=== PATIENT | female | born 1995 | race Caucasian/White ===

== ENCOUNTER 2020-03-09 13:02 | Inpatient (IN) ==
[2020-03-09] MEDS ORDERED: methylPREDNISolone 125 MG/2 ML VIAL IVP ONE (13:41)
[2020-03-09] MEDS ORDERED: Isovue-370 500 ML BOTTLE IVP ONE (13:41)
[2020-03-09 13:44] LABS: Bacteria,Urine Few per hpf (None-Few); Bilirubin,Urine Negative (Negative); Blood,Urine Trace (Negative); Clarity,Urine Clear (Clear); Color,Urine Light-Yellow (Yellow); Glucose,Urine (UA) Normal (Normal); Ketones,Urine >150 mg/dL (Negative); Leukocyte Esterase,Urine Trace (Negative); Mucus,Urine Few per lpf (None-Few); Nitrite,Urine Negative (Negative); PH,Urine 6.5 pH Units (5.0-8.0); Protein,Urine Trace mg/dL (Neg-Trace); RBC,Urine 0-3 per hpf (0-3); Specific Gravity,Urine 1.013 (1.010-1.025); Squamous Epithelial Cell,Urine Few per hpf (None-Few); Urobilinogen,Urine Normal (Normal); WBC,Urine 0-3 per hpf (0-3)
[2020-03-09] MEDS ORDERED: Ondansetron 4 MG/2 ML VIAL IVP ONE (13:48)
[2020-03-09] MEDS ORDERED: *HR* FentaNYL (PF) 100 MCG/2 ML VIAL IVP ONE (13:48)
[2020-03-09] MEDS ORDERED: 0.9 % Sodium Chloride 1,000 ML IVC ONE (13:48)
[2020-03-09 13:53] LABS: Red Cell Distribution Width 18.4 % (11.5-14.5)
[2020-03-09 13:54] LABS: Hematocrit 33.1 % (35.3-44.9); Hemoglobin 10.1 g/dL (11.5-15.4); Mean Corpuscular HGB Conc 30.5 g/dL (31.6-35.5); Mean Corpuscular Hemoglobin 25.1 pg (28.0-33.3); Mean Corpuscular Volume 82.3 fL (83.0-100.0); Mean Platelet Volume 8.8 fL (9.4-12.4); Platelet Count 510 K/mcL (140-400); Red Blood Count 4.02 M/mcL (3.82-4.97); White Blood Count 27.2 K/mcL (4.3-11.1)
[2020-03-09 14:18] LABS: Eosinophils # 0.5 K/mcL (0.0-0.6); Lymphocytes # 2.7 K/mcL (0.6-4.6); Monocytes # 1.1 K/mcL (0.0-1.3); Neutrophils # 22.9 K/mcL (1.6-8.9)
[2020-03-09 14:43] LABS: Alanine Aminotransferase 36 Units/L (7-52); Albumin 2.9 g/dL (3.5-5.7); Alkaline Phosphatase 302 Units/L (34-104); Aspartate Amino Transferase 20 Units/L (13-39); Bilirubin,Direct 0.2 mg/dL (0.0-0.2); Bilirubin,Indirect 0.7 mg/dL (0.0-1.0); Bilirubin,Total 0.9 mg/dL (0.3-1.0); Blood Urea Nitrogen < 2 mg/dL (6-20); Calcium 8.2 mg/dL (8.6-10.3); Carbon Dioxide 23 mEq/L (23-29); Chloride 104 mEq/L (98-107); Globulin 2.9 g/dL (2.4-3.5); Glucose 84 mg/dL (70-105); Lipase 53 Units/L (11-82); Sodium 136 mEq/L (136-145); Total Protein 5.8 g/dL (6.4-8.9); eGFR For African Americans > 60 (> 60); eGFR For Non-African Americans > 60 (> 60)
[2020-03-09] MEDS ORDERED: Piperacillin/Tazobactam 3.375 GM in Water for inj. (sterile) 20 ML IVP ONE (15:45)
[2020-03-09] MEDS ORDERED: Naloxone 0.4 MG/ML INJ IVP PRN ×2 (16:13→16:20)
[2020-03-09] MEDS ORDERED: Ondansetron 4 MG/2 ML VIAL IVP PRN (16:20)
[2020-03-09 16:42] LABS: Chol/HDL Ratio 5.2 (0-4.9); Cholesterol 73 mg/dL (< 200); HDL Cholesterol 14 mg/dL (40-59); LDL Cholesterol,Calculated 33 mg/dL (< 100); Magnesium 1.8 mg/dL (1.6-2.6); Phosphorous 1.9 mg/dL (2.7-4.5); Triglycerides 130 mg/dL (< 150)
[2020-03-09] MEDS: *HR* HYDROmorphone (PF) 1 MG/ML SYRINGE IVP PRN (20:55)
[2020-03-09] MEDS: 0.9 % Sodium Chloride 1,000 ML IVC SCH (20:58)
[2020-03-10] MEDS: Piperacillin/Tazobactam 3.375 GM in 0.9 % Sodium Chloride Mini Bag 100 ML IVPB SCH ×5 (00:09→23:23)
[2020-03-10] MEDS ORDERED: Famotidine 20 MG/2 ML VIAL IVP ONE ×2 (00:14→07:22)
[2020-03-10] MEDS: *HR* HYDROmorphone (PF) 1 MG/ML SYRINGE IVP PRN (03:10)
[2020-03-10] MEDS: 0.9 % Sodium Chloride 1,000 ML IVC SCH ×3 (03:11→18:13)
[2020-03-10 07:09] LABS: Hemoglobin 9.7 g/dL (11.5-15.4); Mean Corpuscular HGB Conc 30.3 g/dL (31.6-35.5); Mean Corpuscular Hemoglobin 25.7 pg (28.0-33.3); Mean Corpuscular Volume 84.7 fL (83.0-100.0); Mean Platelet Volume 9.7 fL (9.4-12.4); Platelet Count 453 K/mcL (140-400); Red Blood Count 3.78 M/mcL (3.82-4.97); Red Cell Distribution Width 18.5 % (11.5-14.5)
[2020-03-10 07:15] LABS: White Blood Count 31.5 K/mcL (4.3-11.1)
[2020-03-10] MEDS ORDERED: Pregabalin 75 MG CAPSULE PO ONE ×2 (07:22→10:19)
[2020-03-10] MEDS ORDERED: *HR* HYDROmorphone (PF) 1 MG/ML SYRINGE IVP PRN (07:22)
[2020-03-10] MEDS ORDERED: *HR* Labetalol 20 MG/4 ML SYRINGE IVP PRN (07:22)
[2020-03-10] MEDS ORDERED: *HR* HYDROmorphone 2 MG TABLET PO PRN (07:22)
[2020-03-10] MEDS ORDERED: *HR* Promethazine 25 MG/ML VIAL IVP PRN (07:22)
[2020-03-10] MEDS ORDERED: *HR* OxyCODONE Immed Rel 5 MG TABLET PO PRN (07:22)
[2020-03-10] MEDS ORDERED: Acetaminophen IV 1,000 MG/100 ML INFUS..BTL IVPB ONE (07:22)
[2020-03-10] MEDS ORDERED: Scopolamine Patch 1.5 MG PATCH.TD72 TD ONE (07:22)
[2020-03-10] MEDS ORDERED: Bupivacaine/EPI 1:200k 0.25%PF 30 ML VIAL ONE (07:23)
[2020-03-10 07:27] LABS: BUN/Creatinine Ratio 17 (6-26); Blood Urea Nitrogen 5 mg/dL (6-20); Calcium 8.3 mg/dL (8.6-10.3); Carbon Dioxide 19 mEq/L (23-29); Chloride 110 mEq/L (98-107); Glucose 109 mg/dL (70-105); Osmolality,Calculated 284 (280-300); Potassium 3.6 mEq/L (3.5-5.1); Sodium 138 mEq/L (136-145); eGFR For African Americans > 60 (> 60); eGFR For Non-African Americans > 60 (> 60)
[2020-03-10] MEDS ORDERED: Lidocaine -MPF 2% 2 ML VIAL ONE (07:39)
[2020-03-10] MEDS ORDERED: *HR* Midazolam HCl 2 MG/2 ML VIAL ONE (07:39)
[2020-03-10] MEDS ORDERED: Dexamethasone 4 MG/ML VIAL ONE (07:39)
[2020-03-10] MEDS ORDERED: Ondansetron 4 MG/2 ML VIAL ONE (07:39)
[2020-03-10] MEDS ORDERED: *HR* FentaNYL (PF) 100 MCG/2 ML VIAL ONE ×2 (07:39→08:56)
[2020-03-10] MEDS ORDERED: *HR* Rocuronium Bromide 50 MG/5 ML VIAL ONE (07:39)
[2020-03-10] MEDS ORDERED: Ketorolac 30 MG/ML VIAL ONE (07:39)
[2020-03-10] MEDS ORDERED: *HR* Propofol 200 MG/20 ML VIAL IVP ONE (07:39)
[2020-03-10] MEDS ORDERED: Lidocaine HCL 4 ML Topical Solution (Laryng-O-Jet Kit Sterile Pak) TP ONE (07:40)
[2020-03-10] MEDS ORDERED: Isovue-300 50ML VIAL ONE (07:45)
[2020-03-10 08:04] LABS: Lymphocytes # 1.9 K/mcL (0.6-4.6); Monocytes # 1.3 K/mcL (0.0-1.3); Neutrophils # 28.4 K/mcL (1.6-8.9)
[2020-03-10] MEDS ORDERED: *HR* HYDROMORPHONE 2 MG/ML VIAL ONE (09:17)
[2020-03-10] MEDS ORDERED: Naloxone 0.4 MG/ML INJ IVP PRN (10:19)
[2020-03-10] MEDS ORDERED: Ondansetron 4 MG/2 ML VIAL IVP PRN (10:19)
[2020-03-10] MEDS: Acetaminophen IV 1,000 MG/100 ML INFUS..BTL IVPB SCH ×3 (11:15→23:23)
[2020-03-10 15:05] LABS: RBC,Peritoneal Fluid 4000 RBC/mcL
[2020-03-10 15:10] LABS: Appearance of Peritoneal Fl CLOUDY (Clear)
[2020-03-10] MEDS: *HR* OxyCODONE Immed Rel 5 MG TABLET PO PRN ×2 (16:23→23:22)
[2020-03-10] MEDS: *HR* Heparin 5,000 UNIT/ML VIAL SQ SCH (16:24)
[2020-03-10] MEDS: *HR* HYDROmorphone PF 0.5 MG/0.5 ML SYRINGE IVP PRN (18:11)
[2020-03-10] MEDS: Fluconazole 400 MG/200 ML 400 MG/200 ML BAG IVPB SCH (18:37)
[2020-03-11] MEDS: *HR* HYDROmorphone PF 0.5 MG/0.5 ML SYRINGE IVP PRN ×4 (00:42→21:55)
[2020-03-11] MEDS: 0.9 % Sodium Chloride 1,000 ML IVC SCH ×3 (04:10→21:46)
[2020-03-11 04:42] LABS: Hemoglobin 8.6 g/dL (11.5-15.4)
[2020-03-11 04:45] LABS: Hematocrit 28.5 % (35.3-44.9); Mean Corpuscular HGB Conc 30.2 g/dL (31.6-35.5); Mean Corpuscular Hemoglobin 24.9 pg (28.0-33.3); Mean Corpuscular Volume 82.6 fL (83.0-100.0); Platelet Count 552 K/mcL (140-400); Red Blood Count 3.45 M/mcL (3.82-4.97); Red Cell Distribution Width 18.6 % (11.5-14.5); White Blood Count 29.7 K/mcL (4.3-11.1)
[2020-03-11 05:00] LABS: Alanine Aminotransferase 22 Units/L (7-52); Albumin 2.3 g/dL (3.5-5.7); Albumin/Globulin Ratio 0.9 (1.1-2.2); Alkaline Phosphatase 158 Units/L (34-104); Aspartate Amino Transferase 13 Units/L (13-39); BUN/Creatinine Ratio 28 (6-26); Bilirubin,Total 0.4 mg/dL (0.3-1.0); Blood Urea Nitrogen 9 mg/dL (6-20); C-Reactive Protein 76 mg/L (Less than 10); Calcium 7.9 mg/dL (8.6-10.3); Carbon Dioxide 23 mEq/L (23-29); Chloride 111 mEq/L (98-107); Globulin 2.5 g/dL (2.4-3.5); Glucose 126 mg/dL (70-105); Osmolality,Calculated 288 (280-300); Potassium 3.4 mEq/L (3.5-5.1); Sodium 139 mEq/L (136-145); Total Protein 4.8 g/dL (6.4-8.9); eGFR For African Americans > 60 (> 60); eGFR For Non-African Americans > 60 (> 60)
[2020-03-11] MEDS: Acetaminophen IV 1,000 MG/100 ML INFUS..BTL IVPB SCH ×4 (05:11→23:13)
[2020-03-11] MEDS: *HR* Heparin 5,000 UNIT/ML VIAL SQ SCH ×2 (05:13→17:36)
[2020-03-11 05:17] LABS: Monocytes # 0.6 K/mcL (0.0-1.3); Neutrophils # 26.1 K/mcL (1.6-8.9); Platelet Estimate Increased (Normal); Smudge Cells Present (Not Present)
[2020-03-11] MEDS ORDERED: Potassium Chloride Elixir 20 MEQ/15 ML UDC PO ONE (08:07)
[2020-03-11] MEDS: Pantoprazole 40 MG VIAL IVP SCH (08:18)
[2020-03-11] MEDS: *HR* OxyCODONE Immed Rel 5 MG TABLET PO PRN ×2 (08:18→15:24)
[2020-03-11] MEDS: Piperacillin/Tazobactam 3.375 GM in 0.9 % Sodium Chloride Mini Bag 100 ML IVPB SCH ×2 (08:19→15:24)
[2020-03-11] MEDS: Vancomycin 1,500 MG/265 ML IV.SOLN IVPB SCH ×2 (13:49→21:54)
[2020-03-11] MEDS: Fluconazole 400 MG/200 ML 400 MG/200 ML BAG IVPB SCH (17:28)
[2020-03-11] MEDS: hydrOXYzine pamoate 25 MG CAPSULE PO SCH (21:54)
[2020-03-12] MEDS: Piperacillin/Tazobactam 3.375 GM in 0.9 % Sodium Chloride Mini Bag 100 ML IVPB SCH ×3 (00:18→17:19)
[2020-03-12] MEDS: *HR* OxyCODONE Immed Rel 5 MG TABLET PO PRN ×2 (00:26→08:17)
[2020-03-12] MEDS: 0.9 % Sodium Chloride 1,000 ML IVC SCH ×2 (02:42→10:37)
[2020-03-12] MEDS: *HR* HYDROmorphone PF 0.5 MG/0.5 ML SYRINGE IVP PRN (02:42)
[2020-03-12] MEDS: *HR* Heparin 5,000 UNIT/ML VIAL SQ SCH ×2 (05:28→17:20)
[2020-03-12] MEDS: Acetaminophen IV 1,000 MG/100 ML INFUS..BTL IVPB SCH ×3 (05:34→19:35)
[2020-03-12] MEDS: Vancomycin 1,500 MG/265 ML IV.SOLN IVPB SCH (05:35)
[2020-03-12] MEDS ORDERED: Simethicone 80 MG TAB.CHEW PO PRN (05:42)
[2020-03-12 05:51] LABS: Mean Corpuscular Volume 84.2 fL (83.0-100.0); Nucleated Red Blood Cells 0.2 /100 WBC (0)
[2020-03-12 05:52] LABS: Hematocrit 35.1 % (35.3-44.9); Hemoglobin 10.6 g/dL (11.5-15.4); Mean Corpuscular HGB Conc 30.2 g/dL (31.6-35.5); Mean Corpuscular Hemoglobin 25.4 pg (28.0-33.3); Mean Platelet Volume 9.5 fL (9.4-12.4); Platelet Count 646 K/mcL (140-400); Red Blood Count 4.17 M/mcL (3.82-4.97); Red Cell Distribution Width 18.6 % (11.5-14.5)
[2020-03-12 05:57] LABS: White Blood Count 54.7 K/mcL (4.3-11.1)
[2020-03-12 06:12] LABS: BUN/Creatinine Ratio 10 (6-26); Blood Urea Nitrogen 5 mg/dL (6-20); Calcium 7.8 mg/dL (8.6-10.3); Carbon Dioxide 24 mEq/L (23-29); Chloride 107 mEq/L (98-107); Glucose 74 mg/dL (70-105); Lymphocytes # 6.6 K/mcL (0.6-4.6); Monocytes # 2.2 K/mcL (0.0-1.3); Osmolality,Calculated 282 (280-300); Platelet Estimate Increased (Normal); Sodium 138 mEq/L (136-145); eGFR For African Americans > 60 (> 60); eGFR For Non-African Americans > 60 (> 60)
[2020-03-12] MEDS: Pantoprazole 40 MG VIAL IVP SCH (08:07)
[2020-03-12] MEDS: Potassium Chloride Elixir 20 MEQ/15 ML UDC PO SCH ×2 (09:51→17:20)
[2020-03-12] MEDS ORDERED: Isovue-370 500 ML BOTTLE IVP ONE (10:12)
[2020-03-12] MEDS ORDERED: methylPREDNISolone 125 MG/2 ML VIAL IVP ONE (10:13)
[2020-03-12] MEDS ORDERED: *HR* HYDROmorphone PF 0.5 MG/0.5 ML SYRINGE IVP PRN (10:14)
[2020-03-12] MEDS: *HR* HYDROmorphone (PF) 1 MG/ML SYRINGE IVP PRN ×3 (11:39→20:45)
[2020-03-12] MEDS ORDERED: Albumin 25% 25gram/100mL 25 GM/100 ML IV.SOLN IVPB SCH (16:00)
[2020-03-12] MEDS: Fluconazole 400 MG/200 ML 400 MG/200 ML BAG IVPB SCH (17:39)
[2020-03-12 19:18] VITALS: BP 125/86
[2020-03-12] MEDS: hydrOXYzine pamoate 25 MG CAPSULE PO SCH (20:26)
[2020-03-13 23:45] LABS: Fluid Source for Albumin ASCITES
[2020-03-14 00:25] LABS: Fluid Source for Bilirubin ASCITES FLUID
== END 2020-03-12 20:55 | disposition short-term general hospital (02) | DRG 710 ==
LOC: 3BNU 13:02 → EMEROOARM 13:02 → SUATTDRO 16:50 → 3BNU 17:54 → 2NNU 03-12 10:18
PROVIDERS: ADMIT Internal Medicine; ATTEND Internal Medicine